=== PATIENT | female | born 1945 | race Two or more races ===

== ENCOUNTER 2019-03-07 12:17 | Emergency (ER) | payer OTHER ==
[~2019-03-07] VITALS: Ht 170.2 cm; Wt 77.6 kg
[2019-03-07] MEDS ORDERED: SYNTHROID100 MCG (12:28)
[2019-03-07] MEDS ORDERED: KETO10TA2 PO (15:01)
[2019-03-07] MEDS ORDERED: NORFLEX100MG PO (15:01)
== END 2019-03-07 15:09 | disposition home or self-care (01) ==
LOC: ER 12:17
DX: S00.33XA Contusion of nose, initial encounter (principal); S00.83XA Contusion of other part of head, initial encounter; S80.01XA Contusion of right knee, initial encounter; S93.492A Sprain of other ligament of left ankle, initial encounter; S13.8XXA Sprain of joints and ligaments of other parts of neck, initial encounter; W01.198A Fall on same level from slipping, tripping and stumbling with subsequent striking against other object, initial encounter; Y93.89 Activity, other specified; Y92.89 Other specified places as the place of occurrence of the external cause; Y99.8 Other external cause status

== ENCOUNTER 2019-04-18 08:04 | Outpatient (CLI) | payer OTHER ==
[~2019-04-18 08:04] MED LIST: KETO10TA2 PO; NORFLEX100MG PO; SYNTHROID100 MCG
== END 2019-04-18 08:23 | disposition home or self-care (01) ==
LOC: MRI 08:04
DX: I72.8 Aneurysm of other specified arteries (principal); I65.1 Occlusion and stenosis of basilar artery; I65.03 Occlusion and stenosis of bilateral vertebral arteries; Q28.2 Arteriovenous malformation of cerebral vessels; R42 Dizziness and giddiness; H93.3X9 Disorders of unspecified acoustic nerve
CPT/HCPCS: 70544 ×2; 70553; A9575; 70552

== ENCOUNTER 2020-07-03 10:51 | Outpatient (CLI) | payer OTHER | END 2020-07-03 11:02 | disposition home or self-care (01) | LOC: MRI 10:51 | PROVIDERS: ATTEND Physical Medicine & Rehabilitation | DX: M54.5 Low back pain (principal); M54.10 Radiculopathy, site unspecified; R53.1 Weakness | CPT/HCPCS: 72148 ==

== ENCOUNTER 2020-07-10 07:38 | Outpatient (CLI) | payer OTHER | END 2020-07-10 07:44 | disposition home or self-care (01) | LOC: MRI 07:38 | PROVIDERS: ATTEND Physical Medicine & Rehabilitation | DX: M54.5 Low back pain (principal); M54.10 Radiculopathy, site unspecified; R53.1 Weakness | CPT/HCPCS: 72158; A9575; 72149 ==

== ENCOUNTER 2021-09-22 08:00 | Outpatient (CLI) | payer OTHER | END 2021-09-22 08:30 | disposition home or self-care (01) | LOC: PPH VACUNA 08:00 | PROVIDERS: ATTEND Emergency Medicine Pediatric Emergency Medicine | DX: Z23 Encounter for immunization (principal) ==

== ENCOUNTER 2022-02-19 14:59 | Outpatient (CLI) | payer OTHER | END 2022-02-19 15:09 | disposition home or self-care (01) | LOC: PPH VACUNA 14:59 | PROVIDERS: ATTEND Emergency Medicine Pediatric Emergency Medicine | DX: Z23 Encounter for immunization (principal) ==

== ENCOUNTER 2022-08-14 10:29 | Outpatient (CLI) | payer OTHER | END 2022-08-14 10:35 | disposition home or self-care (01) | LOC: RAD 10:29 | PROVIDERS: ATTEND Internal Medicine Pulmonary Disease | DX: J45.31 Mild persistent asthma with (acute) exacerbation (principal) ==

== ENCOUNTER 2022-10-28 14:10 | Outpatient (CLI) | payer OTHER | END 2022-10-28 14:16 | disposition home or self-care (01) | LOC: RAD 14:10 | PROVIDERS: ATTEND Obstetrics & Gynecology | DX: M54.17 Radiculopathy, lumbosacral region (principal) ==

== ENCOUNTER 2022-11-10 15:36 | Outpatient (CLI) | payer OTHER | END 2022-11-10 15:44 | disposition home or self-care (01) | LOC: RAD 15:36 | PROVIDERS: ATTEND Physical Medicine & Rehabilitation Pain Medicine | DX: M54.17 Radiculopathy, lumbosacral region (principal); M54.2 Cervicalgia; M25.512 Pain in left shoulder ==

== ENCOUNTER 2023-02-02 14:14 | Outpatient (CLI) | payer OTHER | END 2023-02-02 14:40 | disposition home or self-care (01) | LOC: RAD 14:14 | PROVIDERS: ATTEND Physical Medicine & Rehabilitation Pain Medicine | DX: M25.559 Pain in unspecified hip (principal) ==

== ENCOUNTER 2023-12-06 11:41 | Outpatient (CLI) | payer OTHER | END 2023-12-06 11:52 | disposition home or self-care (01) | LOC: SONOGRAMA 11:41 | PROVIDERS: ATTEND Internal Medicine | DX: M19.012 Primary osteoarthritis, left shoulder (principal); M19.212 Secondary osteoarthritis, left shoulder; M06.9 Rheumatoid arthritis, unspecified; G62.9 Polyneuropathy, unspecified; E78.9 Disorder of lipoprotein metabolism, unspecified; E66.8 Other obesity; E03.9 Hypothyroidism, unspecified; I10 Essential (primary) hypertension; E11.42 Type 2 diabetes mellitus with diabetic polyneuropathy; E11.51 Type 2 diabetes mellitus with diabetic peripheral angiopathy without gangrene; E55.9 Vitamin D deficiency, unspecified ==

== ENCOUNTER 2024-04-18 10:47 | Outpatient (CLI) | payer OTHER | END 2024-04-18 10:52 | disposition home or self-care (01) | LOC: RAD 10:47 | PROVIDERS: ATTEND Internal Medicine Rheumatology | DX: M17.11 Unilateral primary osteoarthritis, right knee (principal); M17.12 Unilateral primary osteoarthritis, left knee ==

== ENCOUNTER 2024-07-08 10:13 | Emergency (ER) | payer OTHER ==
[~2024-07-08] VITALS: Ht 170.2 cm; Wt 78.0 kg
[2024-07-08 11:23] LABS: HEMATOCRIT 35.3 % (36.0-45.00); HEMOGLOBIN 12.1 g/dL (12.0-15.00); MEAN CELL VOLUME 89.9 fL (80.00-100.00); MEAN CORPUSCULAR HEMOGLOBIN 30.8 pg (27.00-32.0); MEAN CORPUSCULAR HGB CONC 34.3 g/dl (32.0-36.0); PLATELET COUNT 434 K/uL (150-450); RED BLOOD COUNT 3.93 M/uL (4.00-6.00); RED CELL DISTRIBUTION WIDTH 14.1 % (11.5-14.5)
[2024-07-08] MEDS ORDERED: ZITHROMAX TRI-500 MG PO (12:35)
[2024-07-08] MEDS ORDERED: GILTUSS COUGH-118 M1 PO (12:35)
== END 2024-07-08 12:47 | disposition home or self-care (01) ==
LOC: ER 10:15
PROVIDERS: Preventive Medicine Public Health & General Preventive Medicine
DX: J06.9 Acute upper respiratory infection, unspecified (principal); E11.9 Type 2 diabetes mellitus without complications; E03.8 Other specified hypothyroidism; Z88.5 Allergy status to narcotic agent

== ENCOUNTER 2024-11-05 13:48 | Outpatient (CLI) | payer OTHER ==
[~2024-11-05 13:48] MED LIST changes: +GILTUSS COUGH-118 M1 PO; +ZITHROMAX TRI-500 MG PO
== END 2024-11-05 13:53 | disposition home or self-care (01) ==
LOC: MRI 13:48
PROVIDERS: ATTEND Orthopaedic Surgery
DX: M75.42 Impingement syndrome of left shoulder (principal)
CPT/HCPCS: 73221

== ENCOUNTER 2025-01-14 10:49 | Outpatient (CLI) | payer OTHER | END 2025-01-14 10:58 | disposition home or self-care (01) | LOC: RAD 10:49 | PROVIDERS: ATTEND Internal Medicine Rheumatology | DX: M70.62 Trochanteric bursitis, left hip (principal); M16.11 Unilateral primary osteoarthritis, right hip; M16.12 Unilateral primary osteoarthritis, left hip; M17.11 Unilateral primary osteoarthritis, right knee; M17.12 Unilateral primary osteoarthritis, left knee ==

== ENCOUNTER 2025-05-03 13:58 | Outpatient (CLI) | payer OTHER | END 2025-05-03 14:02 | disposition home or self-care (01) | LOC: SONOGRAMA 13:58 | PROVIDERS: ATTEND Physical Medicine & Rehabilitation | DX: M25.561 Pain in right knee (principal); M75.22 Bicipital tendinitis, left shoulder ==

== ENCOUNTER 2025-05-12 08:24 | Emergency (ER) | payer OTHER ==
[~2025-05-12] VITALS: Ht 172.7 cm; Wt 77.1 kg
[2025-05-12] MEDS ORDERED: GRALISE600 MG (08:46)
[2025-05-12] MEDS ORDERED: METFORMIN HCL500 M3 (08:46)
[2025-05-12] MEDS ORDERED: ZOLOFT50 MG (08:47)
[2025-05-12] MEDS ORDERED: METHYLPREDNISOLONE SOD SUCC 125 MG VIAL IV STA (08:57)
[2025-05-12] MEDS ORDERED: IPRATROPIUM BROMIDE 0.5 MG/2.5 ML AMPUL.NEB IH SCH (09:00)
[2025-05-12] MEDS ORDERED: LEVALBUTEROL HCL 0.63 MG/3 ML SOLUTION IH SCH (09:00)
[2025-05-12] MEDS ORDERED: METHYLPREDNISOLONE SOD SUCC 40 MG VIAL ONE (09:22)
[2025-05-12 10:04] LABS: BASO % 0.7 % (0.1-1.2); EOS # 0.55 (0.04-0.54); EOS % 4.5 % (0.7-7.0); LYMPH # 1.43 (1.18-3.74); LYMPH % 11.6 % (19.3-53.1); MEAN PLATELET VOLUME 9.30 fl (9.4-12.4); MONO # 1.24 (0.24-0.82); MONO % 10.1 % (4.7-12.5); NEUT # 8.91 (1.56-6.13); NEUT % 72.5 % (34.0-71.1); RED CELL DISTRIBUTION WIDTH 13.2 % (11.6-14.4)
[2025-05-12 10:07] LABS: ERYTHROCYTE SEDIMENTATION RATE 46 mm/hr (0-30)
[2025-05-12 10:22] LABS: INR 0.98
[2025-05-12 10:28] LABS: ALT/SGPT 32.0 U/L (12-78); AST/SGOT 26.0 U/L (15-37); BILIRUBIN TOTAL 0.64 mg/dL (0.3-1.2); BUN CREA RATIO 20.0 (7.0-25.0); CREATININE SERUM 0.85 mg/dL (0.55-1.02); GFR 64.68; GLOBULINA 4.1 G/DL (2.4-3.5); GLUCOSE FASTING 128.0 mg/dL (65-100); OSMOLALITY SERUM 283.0 MOSM/KG (275-295)
[2025-05-12 11:27] LABS: URINE APPEARANCE Clear; URINE BILIRRUBIN Negative (NEGATIVE); URINE BLOOD Negative; URINE COLOR Yellow; URINE GLUCOSE Negative (NEGATIVE); URINE KETONE Trace (NEGATIVE); URINE LEUKOCYTE Small; URINE NITRATE Negative; URINE PROTEIN Negative (NEGATIVE); URINE UROBILINOGEN 0.2 E.U./dl
[2025-05-12 11:32] LABS: URINE BACTERIA 93.7 uL (0.0-1933); URINE CAST 3.54 uL (0.0-1.40); URINE EPITHELIAL CELLS 11.1 uL (0.0-38.8); URINE WBC 37.5 uL (0.0-23.2)
[2025-05-12 11:50] LABS: URINE RBC 1.8 uL (0.0-20.8)
[2025-05-12 11:53] LABS: COVID-19 AG NEGATIVE (NEGATIVE)
[2025-05-12] MEDS ORDERED: LEVALBUTEROL HCL 0.63 MG/3 ML SOLUTION IH ONE (13:08)
[2025-05-12] MEDS ORDERED: CEFTRIAXONE SODIUM 1,000 MG VIAL IM STA (13:24)
[2025-05-12] MEDS ORDERED: LEVALBUTEROL HCL 0.63 MG/3 ML SOLUTION IH STA (13:33)
[2025-05-12] MEDS ORDERED: IPRATROPIUM BROMIDE 0.5 MG/2.5 ML AMPUL.NEB IH STA (13:33)
[2025-05-12] MEDS ORDERED: LIDOCAINE HCL 1% 10ML VIAL ONE (13:44)
[2025-05-12] MEDS ORDERED: CEFTRIAXONE SODIUM 1,000 MG VIAL ONE (13:45)
[2025-05-12] MEDS ORDERED: MUCINEX DM ER1 EAC1 PO (14:38)
[2025-05-12] MEDS ORDERED: ZITHROMAX500 MG PO (14:38)
[2025-05-12] MEDS ORDERED: MEDROLPACK PO (14:38)
[2025-05-12] MEDS ORDERED: XOPENEX CO1.25 MG/0. IH (14:38)
[2025-05-12] MEDS ORDERED: BUDESONIDE0.5 MG/2 M IH (14:38)
== END 2025-05-12 14:49 | disposition home or self-care (01) ==
LOC: ER 08:24
PROVIDERS: Physician Assistant Medical
DX: J98.01 Acute bronchospasm (principal); J06.9 Acute upper respiratory infection, unspecified; R05.8 Other specified cough; E11.9 Type 2 diabetes mellitus without complications; Z79.84 Long term (current) use of oral hypoglycemic drugs; Z88.1 Allergy status to other antibiotic agents; Z20.822 Contact with and (suspected) exposure to COVID-19
CPT/HCPCS: 36415; 71046; 71250; 93005; 94640; 96365; 96372; 99284; J0696; J3490